=== PATIENT | male | born 1965 | race African-American/Black ===

== ENCOUNTER 2023-11-03 22:32 | Emergency (ER) | payer MEDICAID ==
[~2023-11-03] VITALS: Ht 182.9 cm; Wt 75.0 kg
[2023-11-03 22:35] VITALS: TEMP 98.1; O2SAT 99
[2023-11-03] MEDS: TRANEXAMIC ACID 1,000MG/10ML IV ONE (22:45)
[2023-11-03] MEDS: METHYLPREDNISOLONE SOD SUCC 40MG VIAL IV ONE (22:45)
[2023-11-03] MEDS: FAMOTIDINE 20MG/2ML VIAL IV ONE (22:45)
[2023-11-03] MEDS: DIPHENHYDRAMINE 50MG/ML VIAL IV ONE (22:45)
[2023-11-03] MEDS: METHYLPREDNISOLONE SOD SUCC 125MG/2ML (ACT-O-VIAL) IV NR (23:00)
[2023-11-04 01:39] LABS: BASOPHILS % 0.7 % (0.0-2.0); DIFFERENTIAL COMMENT 0; HEMATOCRIT. 39.3 % (42.0-52.0); HEMOGLOBIN. 12.6 g/dL (14.0-18.0); MEAN CORPUSCULAR HEMOGLOBIN 23.9 pg (28.0-32.0); MEAN CORPUSCULAR VOLUME 74.8 fL (80.0-94.0); MEAN PLATELET VOLUME 8.1 fl (7.4-10.4); MONOCYTES % 7.4 % (2.0-8.0); NEUTROPHILS % 73.9 % (40.0-76.0); PLATELET 319 x1000/uL (130-400); RED BLOOD CELL COUNT 5.26 mill/uL (4.7-6.1); RED CELL DISTRIBUTION WIDTH 15.8 % (11.6-14.6); WHITE BLOOD COUNT 7.4 x1000/uL (4.5-11.0)
[2023-11-04 01:47] LABS: CHLORIDE 111 mEq/L (98-107); POTASSIUM 4.2 mEq/L (3.5-5.1); SODIUM 138 mEq/L (136-145)
[2023-11-04 01:48] LABS: CARBON DIOXIDE 22 mEq/L (21-32)
[2023-11-04 01:49] LABS: CALCIUM 9.6 mg/dL (8.7-10.4)
[2023-11-04 01:53] LABS: CREATININE 1.6 mg/dL (0.6-1.3); GLUCOSE 83 mg/dL (70-105); UREA NITROGEN BLOOD 12 mg/dL (9-23)
[2023-11-04 01:54] LABS: TROPONIN I HIGH SENSITIVITY 6 ng/L (3.0-53)
[2023-11-04 01:55] LABS: ALANINE AMINOTRANSFERASE 13 IU/L (10-49); ALBUMIN 4.6 g/dL (3.2-4.8); ASPARTATE AMINOTRANSFERASE 23 IU/L (<34)
[2023-11-04 01:56] LABS: BILIRUBIN TOTAL 0.4 mg/dL (0.1-1.0); PROTEIN TOTAL 7.7 g/dL (6.0-8.3)
[2023-11-04] MEDS ORDERED: DIPHENHYDRAMINE 50MG/ML VIAL IV PRN (02:30)
[2023-11-04] MEDS ORDERED: ONDANSETRON HCL 4MG/2ML INJ IV PRN (02:30)
[2023-11-04] MEDS ORDERED: IPRATROPIUM/ALBUTEROL 0.5-3(2.5)MG/3ML NEB HHN PRN (02:30)
[2023-11-04] MEDS: DEXT 5%/0.45% NACL 1000ML 1,000 ML IV SCH (02:30)
[2023-11-04] MEDS: SODIUM CHLORIDE 0.9% 500 ML IV ONE (03:15)
[2023-11-04] MEDS ORDERED: HYDRALAZINE 20MG/ML VIAL IV PRN (03:30)
[2023-11-04] MEDS: METHYLPREDNISOLONE SOD SUCC 125MG/2ML (ACT-O-VIAL) IV SCH (04:29)
[2023-11-04] MEDS: PANTOPRAZOLE SODIUM 40 MG/VIAL IV SCH (04:30)
[2023-11-04] MEDS ORDERED: IOHEXOL-300 100 ML BOTTLE ONE (05:51)
[2023-11-04 07:32] LABS: IRON 76 ug/dL (65-175)
[2023-11-04 07:35] LABS: TOTAL IRON BINDING CAPACITY 197 ug/dl (250-425)
[2023-11-04 07:40] LABS: THYROID STIMULATING HORMONE 1.16 uIU/mL (0.55-4.78)
[2023-11-04 08:20] VITALS: BP 142/101; PULSE 86; RESP 20
[2023-11-04] MEDS ORDERED: ENOXAPARIN 40MG/0.4ML SYR SUBCUT SCH (09:00)
[2023-11-04 16:34] LABS: FOLIC ACID (FOLATE) SERUM > 20.00 ng/mL (>5.38)
== END 2023-11-04 10:01 | disposition left against medical advice (07) ==
LOC: ER 22:32 → CANBEDREQ 11-04 08:59 → ER 11-04 10:01
DX: T78.3XXA Angioneurotic edema, initial encounter (principal); N28.9 Disorder of kidney and ureter, unspecified; F32.9 Major depressive disorder, single episode, unspecified; I10 Essential (primary) hypertension; F20.9 Schizophrenia, unspecified; X58.XXXA Exposure to other specified factors, initial encounter
CPT/HCPCS: 36415 ×2; 71045; 93005 ×2; 96374; 96375 ×2; 99291; 80053; 82746; 83036; 83880; 84439; 83540; 83550; 84443; 85025; 86850; 86900; 86901; 84484; 70492; 74178; 96361; 96376; Q9967; J1200; J3490; J2930; C9113; J2920